=== PATIENT | male | born 1980 | race African-American/Black ===

== ENCOUNTER 2019-10-27 05:56 | Observation (INO) | payer OTHER ==
[2019-10-27] VITALS (7 sets, daily range): BP systolic 123–156; BP diastolic 55–94; BMI 32.3
[~2019-10-27] VITALS: Ht 167.6 cm; Wt 90.9 kg
[2019-10-27 08:52] LABS: HEMATOCRIT 38.7 % (42.0-54.0); HEMOGLOBIN 13.4 g/dL (13.5-17.5); MCH 32.3 pg (26.0-34.0); MCHC 34.6 g/dL (31.0-37.0); MCV 93.3 fL (80.0-100.0); MEAN PLATELET VOLUME 10.1 fL (7.4-10.4); RBC 4.15 10x6/uL (4.20-6.10); RDW 13.5 % (11.5-14.5); WBC 4.4 10x3/uL (4.8-10.8)
[2019-10-27] MEDS ORDERED: NORVASC5 MG PO (09:01)
[2019-10-27] MEDS ORDERED: PAMELOR 25 MG C25 MG PO (09:02)
[2019-10-27] MEDS ORDERED: CLARITIN 10 MG10 MG PO (09:02)
[2019-10-27] MEDS ORDERED: DILANTIN100 MG PO (09:03)
[2019-10-27] MEDS ORDERED: QVAR REDIHALE10.6 G1 INH (09:04)
[2019-10-27] MEDS ORDERED: ZOCOR20 MG PO (09:04)
[2019-10-27] MEDS ORDERED: XOPENEX HFA15 GM (09:05)
--- NOTE | 2019-10-27 19:15 | NUR ---
IN ROOM WAITING FOR OP SURGERY. ALERT AND ORIENTED X4. NS INFUSING IN RT HAND. GUARD X2 AT BEDSIDE. ANESTHESIOLOGY IN ROOM TO TALK TO PT. SLIGHTLY HYPERTENSIVE.
--- NOTE | 2019-10-27 19:25 | NUR ---
TO OP SURGERY AT THIS TIME.
--- NOTE | 2019-10-27 21:00 | NUR ---
RECEIVED PT FROM RECOVERY FOR WAKE UP BED. PT ALERT AND ORIENTED. C/O RECTAL PAIN. ASSISTED UP TO BR. UNABLE TO VOID AT THIS TIME. STATES HE FEELS LIKE HE HAS TO HAVE A BM. PACKING IN RECTUM. IV INFUSING IN RT HAND. GUARD X2 AT BEDSIDE. CL IN REACH.
--- NOTE | 2019-10-27 21:17 | NUR ---
TRUMAN PACU NURSE MEDICATED PT WITH DILAUDID X1 FOR RECTAL PAIN. SHE STATES THAT DR BAER WANTS TO KEEP PT OVERNIGHT FOR PAIN CONTROL.
--- NOTE | 2019-10-27 22:10 | NUR ---
GUARD REPORTS PT VOMITED CLEAR AFTER DRINKING WATER. STILL UNABLE TO VOID. WILL CONT TO MONITOR. CL IN REACH.
--- NOTE | 2019-10-27 22:13 | NUR ---
BANJO REPAIR PERSON DILAUDID INITIATED AT THIS TIME. PT SHIVERING AND REPORTS RECTAL PAIN 10. PT INSTRUCTED ON USE OF BANJO REPAIR PERSON AND VERBALIZED UNDERSTANDING. CL IN REACH. GUARD X2 AT BEDSIDE.
--- NOTE | 2019-10-27 23:32 | NUR ---
REQUESTING JUICE AND JELLO. REQUEST GRANTED. GUARD AT BEDSIDE. CL IN REACH. V/S STABLE. 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
[2019-10-28] VITALS (7 sets, daily range): BP systolic 119–164; BP diastolic 55–95; Ht 167.6 cm; Wt 90.9 kg
--- NOTE | 2019-10-28 01:43 | NUR ---
AWAKE, ALERT. LYING ON LT SIDE IN BED. V/S STABLE. ENCOURAGED DEEP BREATHING. C/O RECTAL PAIN. WAITING ON REPAIR WEAVER DOSE TO BE AVAILABLE. GUARD AT BEDSIDE. CL IN REACH.
--- NOTE | 2019-10-28 05:07 | NUR ---
ASSISTANT ASSOCIATE PROFESSOR EMPTY AT THIS TIME. NEW SYRINGE INSERTED IN PUMP. PT STATES, "I'M BLOCKED UP." STAFF ASKED IF PT MEANT HE WAS CONSTIPATED AND HE STATES, "YES, DAMON BEEN TRYING TO HAVE A BOWEL MOVEMENT TONIGHT AND CANT." EXPLAINED TO PT THAT HE HAD A BM YESTERDAY AND THAT HE HAS PACKING IN HIS RECTUM THAT MIGHT FEEL LIKE HE NEEDS TO HAVE A BM. DISCOURAGED PT FROM STRAINING. HE VERBALIZED UNDERSTANDING. HASNT SLEPT TONIGHT. HAS BEEN USING ASSISTANT ASSOCIATE PROFESSOR ALL NIGHT. GUARD AT BEDSIDE. CL IN REACH.
[2019-10-28] MEDS ORDERED: VALIUM5 MG PO (08:32)
[2019-10-28] MEDS ORDERED: HYDROCODON-ACE1 EAC7 PO (08:33)
[2019-10-28] MEDS ORDERED: COLACE100 MG PO (08:33)
--- NOTE | 2019-10-28 08:38 | NUR ---
SPOKE WITH MEDICAL RECORDS. THERE IS NO ONE HERE UNTIL WEDNESDAY TO TRANSCRIBE H&P AND OP NOTE.
--- NOTE | 2019-10-28 09:32 | NUR ---
REPORT CALLED TO HAIM AT [facility]. DISCHARGE PAPERWORK SIGNED ALL QUESTIONS ANSWERED. IV TO RIGHT WRIST DC'D, TIP INTACT. ESCORTED OUT BY GUARDS.
--- NOTE | 2019-10-30 13:56 | OP ---
PATIENT NAME: RIYA HOPKINS MEDICAL RECORD: [id number] LOCATION:[id number] ADMISSION DATE:10/27/19 SURGEON: WILL BAER MD DATE OF OPERATION: 10/27/2019 PREOPERATIVE DIAGNOSES: 1. Intractably symptomatic external hemorrhoids. 2. Internal hemorrhoidal bleeding. 3. Third-degree internal hemorrhoidal prolapse of the anus. POSTOPERATIVE DIAGNOSES: 1. Intractably symptomatic external hemorrhoids. 2. Internal hemorrhoidal bleeding. 3. Third-degree internal hemorrhoidal prolapse of the anus. 4. 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 PROCEDURE: 1. Procedure for prolapse and hemorrhoids. 2. Excision of anal fistula at 6 o'clock. INDICATION: The risks, possible complications and alternatives to the procedure were explained to the patient. He elects to proceed. The discussion specifically included, but was not limited to, bleeding requiring emergency reoperation, infection, anal stenosis, fecal incontinence and recurrent hemorrhoidal symptoms. OPERATIVE COURSE: The patient was conveyed to the operating room electively on 10/27/2019. General anesthesia was induced by the anesthesia staff. The patient was placed in the lithotomy position. The buttocks were taped laterally. The anus and perianal areas were sterilely prepped and draped. U-shaped anal retractors were placed to examine the anus. There is no anal fissure. There were enlarged internal and external hemorrhoids. There was a very odd area at 6 o'clock. This was in the midline. There was a pore that was draining purulent material within an external hemorrhoid. I tried to probe this and get it to enter the anus or rectum and was unable to do so. This is either a sinus or it is a fistula that is partially closed, but it remains infected and there was an indurated tract that I could feel. The PPH dilator retractor was placed and retractors sewn to the perianal skin with 2-0 silks. A 2-0 Prolene pursestring suture was applied to the mucosa of the rectum 1 cm cephalad to the clear retractor. The PPH stapling device was inserted with the anvil cephalad to the pursestring suture, which was then tightened and tied. The stapling device was engaged. It was held in place for 3 minutes and then fired. It was then removed under direct vision. There was an entire donut of hemorrhoidal and lower rectal mucosal tissue within the stapling device. Along the mucosal anastomotic staple line, bleeding was controlled with [id number] 3-0 Vicryls. Two large internal hemorrhoidal bundles were then suture ligated. At 6 o'clock, again, I could not get a probe to pass from the external hemorrhoid to the anus or to the rectum. I elected to excise this. I excised this in a piecemeal fashion utilizing the Harmonic scalpel. Subcutaneous and OPERATIVE REPORT [id number] RIYA HOPKINS submucosal flaps were created with the Harmonic scalpel. Indeed, all of this sinus or fistula appeared to be superficial to the external and internal hemorrhoids. The incision was closed with multiple horizontal mattress of 3-0 Vicryls. Gelfoam was applied within the anus and lower rectum. A topical anesthetic cream was applied to the external hemorrhoids. The patient was then extubated and conveyed to post-anesthesia care unit where he was in stable condition. There is no need for him to follow up with me in the office unless he develops complication related to this operative procedure. He will pass the hemostatic packing. This could be normal for him to have bleeding with every bowel movement for about 3 weeks. If there are any difficulties, he can see me on rounds out at the residential when I round there on my GI clinic days. TRANSINT:[id number] Voice Confirmation ID: [id number] DOCUMENT ID: [id number] WILL BAER MD at 1356 CC: [id number] [id number] DICTATION DATE: 10/27/192142 MATZO FORMING MACHINE OPERATOR: 10/28/19440 DIS IN 10/28/19 [facility] [address] [place] [address]
== END 2019-10-28 10:26 ==
LOC: D.OPS 05:56 → D.MS 19:55 → D.OPS 21:02 → D.MS 21:03 → OBSVTIME 21:03 → D.MS 10-28 10:26
PROVIDERS: Anesthesiology; ADMIT Surgery; ATTEND Surgery
DX: K64.2 Third degree hemorrhoids (principal); K60.3 Anal fistula; K62.2 Anal prolapse